=== PATIENT | female | born 1955 | race Caucasian/White ===

== ENCOUNTER → 2020-08-26 | Outpatient (CLI) | payer MEDICARE, OTHER ==
[~2020-08-26] MED LIST: CALAN 40MG TABL40 MG PO; CRESTOR10 MG PO; ESCITALOPRAM OXA5 MG PO; GLUCOTROL XL2.5 MG PO; MELOXICAM7.5 MG PO; NORVASC10 MG PO; PROTONIX20 MG PO; VITAMIN D21250 MCG PO; WELCHOL625 MG PO; WELLBUTRIN SR150 M1 PO
== END ==
LOC: HEART 5 15:13
DX: R91.8 Other nonspecific abnormal finding of lung field (principal)
CPT/HCPCS: 94060; 94729

== ENCOUNTER → 2020-09-08 | Outpatient (CLI) | payer MEDICARE, OTHER ==
[2020-09-08 10:36] LABS: HEMOGLOBIN 13.3 gm/dl (12.3-15.3); RED BLOOD COUNT 4.42 M/UL (4.00-5.10); WHITE BLOOD COUNT 7.4 K/UL (4.5-11.0)
== END ==
LOC: CT 08:25
PROVIDERS: Radiology Diagnostic Radiology
DX: C34.11 Malignant neoplasm of upper lobe, right bronchus or lung (principal); F17.210 Nicotine dependence, cigarettes, uncomplicated; Z88.5 Allergy status to narcotic agent; Z79.84 Long term (current) use of oral hypoglycemic drugs; Z79.899 Other long term (current) drug therapy
CPT/HCPCS: 36415; 71045; 85027; 85610; 85730; 88341; 88342